=== PATIENT | female | born 1975 | race Caucasian/White ===

== ENCOUNTER 2019-09-17 17:45 | Inpatient (IN) | payer BC ==
[~2019-09-17] VITALS: Ht 162.6 cm; Wt 69.1 kg
[2019-09-17] MEDS ORDERED: ONDANSETRON 2MG/ML, 2ML IVPush ONE (18:30)
[2019-09-17] MEDS ORDERED: SODIUM CHLORIDE 0.9% 1,000ML IVBOLUS ONE ×2 (18:30→21:00)
[2019-09-17] MEDS ORDERED: SODIUM CHLORIDE FLUSH 10ML SYR IVF ONE (18:30)
[2019-09-17] MEDS ORDERED: ONDANSETRON 2MG/ML, 2ML ONE (18:44)
--- NOTE | 2019-09-17 19:10 | NUR ---
pt in [place] now
[2019-09-17] MEDS ORDERED: MORPHINE SULFATE 4 MG/ML, 1ML ONE (19:19)
[2019-09-17 19:26] LABS: MD YES; MEAN CORPUSCULAR HEMOGLOBIN 36.4 pg (27.0-34.8); MEAN CORPUSCULAR HGB CONC 35.1 g/dL (32.4-35.8); MEAN CORPUSCULAR VOLUME 103.7 fL (80-100); RED BLOOD COUNT 4.31 x10^6/uL (3.82-5.3); RED CELL DISTRIBUTION WIDTH 12.6 % (9.6-15.2)
[2019-09-17 19:29] LABS: <PLATELET ESTIMATE> ADEQUATE; <PLT MORPHOLOGY> NORMAL PLT MORPH; ANISOCYTOSIS 1+; BAND#(MANUAL) 0.12 x10^3/uL; BANDS%(MANUAL) 1 % (0-7); LYMPH#(MANUAL) 3.89 x10^3/uL (1-3.4); LYMPHS% (MANUAL) 33 % (22-44); MONOS#(MANUAL) 0.35 x10^3/uL (0.3-2.7); MONOS% (MANUAL) 3 % (2-9); SEG#(MANUAL) 7.43 x10^3/uL (1.8-6.8); SEGS% (MANUAL) 63 % (42-75)
[2019-09-17 19:30] LABS: MEAN PLATELET VOLUME 7.4 fL (7.4-10.4); PLATELET COUNT 178 x10^3/uL (130-400)
[2019-09-17] MEDS ORDERED: MORPHINE SULFATE 4 MG/ML, 1ML IVPush PRN ×2 (19:30→21:00)
[2019-09-17 19:51] LABS: ALBUMIN 3.7 g/dL (3.4-5.0); ANION GAP 16 mmol/L (5-15); CALCIUM 8.6 mg/dL (8.5-10.1); CHLORIDE 99 mmol/L (98-107)
[2019-09-17 19:54] LABS: ALKALINE PHOSPHATASE 141 U/L (45-117); BILIRUBIN,TOTAL 2.6 mg/dL (0.2-1.0); CREATININE 1.12 mg/dL (0.55-1.02); TOTAL PROTEIN 7.2 g/dL (6.4-8.2)
--- NOTE | 2019-09-17 19:58 | NUR ---
spoke with lab regading delay. having difficulty getting ast and alt. states they should be up in 5 minutes
[2019-09-17 20:08] LABS: ALANINE AMINOTRANSFERASE 203 U/L (12-78)
[2019-09-17] MEDS ORDERED: SODIUM CHLORIDE 0.9% 1,000 ML IV ONE (20:55)
[2019-09-17] MEDS ORDERED: LORazepam 2 MG/ML, 1ML IVPush PRN (21:00)
[2019-09-17] MEDS ORDERED: ONDANSETRON 2MG/ML, 2ML IVPush PRN (21:00)
[2019-09-17] MEDS ORDERED: SODIUM CHLORIDE FLUSH 10ML SYR IVF PRN (21:00)
[2019-09-17] MEDS ORDERED: hydrALAzine 20 MG/ML, 1ML IVPush PRN (21:30)
[2019-09-17] MEDS ORDERED: FOLIC ACID 5 MG/ML IM ONE (22:00)
[2019-09-17] MEDS ORDERED: LORazepam 2 MG/ML, 1ML IV PRN ×4 (22:00)
[2019-09-17 22:28] LABS: CHOL/HDL RATIO 10.2; CHOLESTEROL, TOTAL 398 mg/dL (140-239); HDL CHOL % 10 % (28-40); HDL CHOLESTEROL (DIRECT) 39 mg/dL (40-60); TRIGLYCERIDES 885 mg/dL (50-200)
[2019-09-17] MEDS: morphine SULFATE 10 MG/ML, 1ML IVPush PRN (22:43)
[2019-09-17 22:46] VITALS: BP 156/89
[2019-09-17] MEDS ORDERED: FOLIC ACID 1 MG TABLET PO ONE (23:00)
[2019-09-18 00:53] VITALS: BP 160/89
[2019-09-18] MEDS: ONDANSETRON 2MG/ML, 2ML IVPush PRN ×2 (01:09→08:00)
[2019-09-18] MEDS: morphine SULFATE 10 MG/ML, 1ML IVPush PRN ×6 (02:12→22:56)
[2019-09-18 06:04] LABS: ANION GAP 16 mmol/L (5-15); CHLORIDE 92 mmol/L (98-107)
[2019-09-18 06:13] LABS: CREATININE 0.88 mg/dL (0.55-1.02)
[2019-09-18 06:25] LABS: ALKALINE PHOSPHATASE 129 U/L (45-117); BILIRUBIN, DIRECT 3.4 mg/dL (0.1-0.2); BILIRUBIN,INDIRECT 2.3 mg/dL (0.0-2.0); BILIRUBIN,TOTAL 5.7 mg/dL (0.2-1.0); TOTAL PROTEIN 5.3 g/dL (6.4-8.2); TRIGLYCERIDES 942 mg/dL (50-200)
[2019-09-18 06:26] LABS: ALBUMIN 2.2 g/dL (3.4-5.0); CHOLESTEROL, TOTAL 419 mg/dL (140-239); HDL CHOL % 8 % (28-40); HDL CHOLESTEROL (DIRECT) 35 mg/dL (40-60)
[2019-09-18 06:27] LABS: CALCIUM 5.3 mg/dL (8.5-10.1)
[2019-09-18 06:46] LABS: ALANINE AMINOTRANSFERASE 207 U/L (12-78)
[2019-09-18 06:59] LABS: MEAN CORPUSCULAR HEMOGLOBIN 35.4 pg (27.0-34.8); MEAN CORPUSCULAR HGB CONC 33.9 g/dL (32.4-35.8); MEAN CORPUSCULAR VOLUME 104.6 fL (80-100); MEAN PLATELET VOLUME 7.7 fL (7.4-10.4); PLATELET COUNT 173 x10^3/uL (130-400); RED BLOOD COUNT 3.76 x10^6/uL (3.82-5.3); RED CELL DISTRIBUTION WIDTH 13.1 % (9.6-15.2)
[2019-09-18 07:11] LABS: MD YES
[2019-09-18 07:14] VITALS: BP 153/90
[2019-09-18 07:15] LABS: EOS#(MANUAL) 0.07 x10^3/uL (0.0-0.4); EOS% (MANUAL) 1 % (1-7); LYMPH#(MANUAL) 1.37 x10^3/uL (1-3.4); LYMPHS% (MANUAL) 19 % (22-44); MONOS#(MANUAL) 0.29 x10^3/uL (0.3-2.7); MONOS% (MANUAL) 4 % (2-9); SEG#(MANUAL) 5.47 x10^3/uL (1.8-6.8); SEGS% (MANUAL) 76 % (42-75)
[2019-09-18 07:16] LABS: <PLATELET ESTIMATE> ADEQUATE; <PLT MORPHOLOGY> NORMAL PLT MORPH
[2019-09-18] MEDS ORDERED: MULTIVITAMINS/MINERALS TABLET PO SCH (09:00)
[2019-09-18] MEDS ORDERED: CHLORDIAZEPOXIDE 25 MG CAPSULE PO PRN (11:00)
[2019-09-18] MEDS ORDERED: CALCIUM GLUCONATE 4.6 MEQ/10 ML IVPush ONE (11:00)
[2019-09-18] MEDS: POTASSIUM CHLORIDE 40 MEQ in SODIUM CHLORIDE 0.9% 1,000 ML IV SCH ×2 (11:16→20:14)
[2019-09-18] MEDS: METOCLOPRAMIDE 5 MG/ML, 2ML IVPush SCH ×3 (11:16→22:56)
[2019-09-18] MEDS: LORazepam 2 MG/ML, 1ML IV PRN ×2 (11:17→16:08)
[2019-09-18 12:37] VITALS: BP 133/82
[2019-09-18 19:09] VITALS: BP 113/76
[2019-09-19 00:57] VITALS: BP 110/73
[2019-09-19] MEDS: morphine SULFATE 10 MG/ML, 1ML IVPush PRN ×7 (02:01→23:08)
[2019-09-19] MEDS: POTASSIUM CHLORIDE 40 MEQ in SODIUM CHLORIDE 0.9% 1,000 ML IV SCH ×2 (03:46→12:17)
[2019-09-19] MEDS: METOCLOPRAMIDE 5 MG/ML, 2ML IVPush SCH ×4 (05:09→23:08)
[2019-09-19 06:11] LABS: MEAN CORPUSCULAR HEMOGLOBIN 35.2 pg (27.0-34.8); MEAN CORPUSCULAR HGB CONC 33.1 g/dL (32.4-35.8); MEAN CORPUSCULAR VOLUME 106.3 fL (80-100); MEAN PLATELET VOLUME 7.4 fL (7.4-10.4); PLATELET COUNT 128 x10^3/uL (130-400); RED BLOOD COUNT 3.77 x10^6/uL (3.82-5.3); RED CELL DISTRIBUTION WIDTH 13.4 % (9.6-15.2)
[2019-09-19 06:12] LABS: MD YES
[2019-09-19 06:14] LABS: BAND#(MANUAL) 1.22 x10^3/uL; BANDS%(MANUAL) 10 % (0-7); LYMPH#(MANUAL) 1.46 x10^3/uL (1-3.4); LYMPHS% (MANUAL) 12 % (22-44); MONOS#(MANUAL) 0.24 x10^3/uL (0.3-2.7); MONOS% (MANUAL) 2 % (2-9); SEG#(MANUAL) 9.27 x10^3/uL (1.8-6.8); SEGS% (MANUAL) 76 % (42-75)
[2019-09-19 06:15] LABS: <PLATELET ESTIMATE> ADEQUATE; <PLT MORPHOLOGY> NORMAL PLT MORPH
[2019-09-19 07:16] VITALS: BP 114/72
[2019-09-19] MEDS: THIAMINE 100 MG in DEXTROSE 5% 50 ML IVPB SCH (08:47)
[2019-09-19 08:52] LABS: ALANINE AMINOTRANSFERASE 93 U/L (12-78); ALBUMIN 2.4 g/dL (3.4-5.0); ANION GAP 12 mmol/L (5-15); CHLORIDE 113 mmol/L (98-107); CREATININE 1.03 mg/dL (0.55-1.02)
[2019-09-19 08:56] LABS: ALKALINE PHOSPHATASE 147 U/L (45-117); BILIRUBIN,TOTAL 3.1 mg/dL (0.2-1.0); TOTAL PROTEIN 6.2 g/dL (6.4-8.2)
[2019-09-19 09:16] LABS: TRIGLYCERIDES 948 mg/dL (50-200)
[2019-09-19 09:21] LABS: CALCIUM 5.8 mg/dL (8.5-10.1)
[2019-09-19 13:25] VITALS: BP 115/69
[2019-09-19] MEDS ORDERED: CALCIUM GLUCONATE 4.6 MEQ/10 ML IVPush ONE (14:00)
[2019-09-19] MEDS ORDERED: MAGNESIUM SULFATE PMX 2GM/50ML 50 ML IV ONE (14:00)
[2019-09-19] MEDS: SODIUM CHLORIDE 0.9% 1,000 ML IV SCH (14:32)
[2019-09-19] MEDS: POTASSIUM ACID PHOSPHATE 500 MG TABLET.SOL PO SCH ×2 (14:32→19:33)
[2019-09-19] MEDS: CHLORDIAZEPOXIDE 25 MG CAPSULE PO SCH ×2 (15:38→20:34)
[2019-09-19 19:18] VITALS: BP 123/79
[2019-09-19] MEDS: CALCIUM CARBONATE 500 MG TAB.CHEW PO SCH (20:34)
[2019-09-20 01:38] VITALS: BP 96/56
[2019-09-20] MEDS: morphine SULFATE 10 MG/ML, 1ML IVPush PRN ×7 (02:22→22:52)
[2019-09-20] MEDS: SODIUM CHLORIDE 0.9% 1,000 ML IV SCH ×2 (02:22→17:40)
[2019-09-20] MEDS: POTASSIUM ACID PHOSPHATE 500 MG TABLET.SOL PO SCH ×2 (02:22→08:41)
[2019-09-20 04:44] LABS: MEAN CORPUSCULAR HEMOGLOBIN 36.2 pg (27.0-34.8); MEAN CORPUSCULAR HGB CONC 34.8 g/dL (32.4-35.8); MEAN CORPUSCULAR VOLUME 104.1 fL (80-100); MEAN PLATELET VOLUME 7.7 fL (7.4-10.4); PLATELET COUNT 128 x10^3/uL (130-400); RED BLOOD COUNT 3.43 x10^6/uL (3.82-5.3); RED CELL DISTRIBUTION WIDTH 14.3 % (9.6-15.2)
[2019-09-20 04:46] LABS: ALBUMIN 1.8 g/dL (3.4-5.0); ANION GAP 6 mmol/L (5-15); CHLORIDE 105 mmol/L (98-107); CREATININE 0.66 mg/dL (0.55-1.02)
[2019-09-20 04:49] LABS: ALKALINE PHOSPHATASE 131 U/L (45-117); BILIRUBIN,TOTAL 2.7 mg/dL (0.2-1.0); TOTAL PROTEIN 5.6 g/dL (6.4-8.2)
[2019-09-20] MEDS: METOCLOPRAMIDE 5 MG/ML, 2ML IVPush SCH ×4 (05:11→22:52)
[2019-09-20 05:45] LABS: MD YES
[2019-09-20 05:47] LABS: BAND#(MANUAL) 1.77 x10^3/uL; BANDS%(MANUAL) 17 % (0-7); LYMPH#(MANUAL) 1.56 x10^3/uL (1-3.4); LYMPHS% (MANUAL) 15 % (22-44); MONOS#(MANUAL) 0.52 x10^3/uL (0.3-2.7); MONOS% (MANUAL) 5 % (2-9); SEG#(MANUAL) 6.55 x10^3/uL (1.8-6.8); SEGS% (MANUAL) 63 % (42-75)
[2019-09-20 05:48] LABS: <PLATELET ESTIMATE> ADEQUATE; <PLT MORPHOLOGY> NORMAL PLT MORPH
[2019-09-20 05:51] LABS: ALANINE AMINOTRANSFERASE 56 U/L (12-78)
[2019-09-20 06:05] LABS: CALCIUM 5.2 mg/dL (8.5-10.1)
[2019-09-20] MEDS ORDERED: CALCIUM GLUCONATE 4.6 MEQ/10 ML IVPush ONE (06:30)
[2019-09-20] MEDS ORDERED: CALCIUM GLUCONATE 4.6 MEQ in SODIUM CHLORIDE 0.9% 100 ML IV ONE ×2 (06:30→16:00)
[2019-09-20 07:15] VITALS: BP 109/71
[2019-09-20] MEDS: THIAMINE 100 MG in DEXTROSE 5% 50 ML IVPB SCH (08:41)
[2019-09-20] MEDS: CHLORDIAZEPOXIDE 25 MG CAPSULE PO SCH (08:41)
[2019-09-20] MEDS: CALCIUM CARBONATE 500 MG TAB.CHEW PO SCH ×2 (08:41→20:47)
[2019-09-20 13:48] VITALS: BP 103/67
[2019-09-20] MEDS: ENOXAPARIN 40 MG/0.4 ML SQ SCH (16:06)
[2019-09-20] MEDS: FENOFIBRATE 145 MG TABLET PO SCH (16:06)
[2019-09-20] MEDS ORDERED: CALCIUM GLUCONATE IV ONE (17:00)
[2019-09-20] MEDS ORDERED: SODIUM CHLORIDE 0.9% IV ONE (17:00)
[2019-09-20 19:01] VITALS: BP 124/64
[2019-09-20] MEDS: ATORVASTATIN 80 MG TABLET PO SCH (20:47)
[2019-09-21 00:42] VITALS: BP 115/73
[2019-09-21] MEDS: morphine SULFATE 10 MG/ML, 1ML IVPush PRN ×7 (02:00→23:02)
[2019-09-21 02:13] VITALS: BP 119/72
[2019-09-21 04:28] LABS: MEAN CORPUSCULAR HEMOGLOBIN 35.3 pg (27.0-34.8); MEAN CORPUSCULAR HGB CONC 34.4 g/dL (32.4-35.8); MEAN CORPUSCULAR VOLUME 102.7 fL (80-100); MEAN PLATELET VOLUME 7.4 fL (7.4-10.4); PLATELET COUNT 125 x10^3/uL (130-400)
[2019-09-21 04:36] LABS: ALANINE AMINOTRANSFERASE 34 U/L (12-78); ALBUMIN 1.5 g/dL (3.4-5.0); ANION GAP 7 mmol/L (5-15); CALCIUM 6.8 mg/dL (8.5-10.1); CHLORIDE 106 mmol/L (98-107)
[2019-09-21 04:39] LABS: ALKALINE PHOSPHATASE 106 U/L (45-117); BILIRUBIN,TOTAL 1.9 mg/dL (0.2-1.0); TOTAL PROTEIN 5.1 g/dL (6.4-8.2)
[2019-09-21 04:58] LABS: MD YES
[2019-09-21 05:00] LABS: BANDS%(MANUAL) 1 % (0-7); BASOS% (MANUAL) 2 % (0-1); EOS% (MANUAL) 1 % (1-7); LYMPH#(MANUAL) 1.41 x10^3/uL (1-3.4); LYMPHS% (MANUAL) 14 % (22-44); METAMYELOCYTES% (MANUAL) 2 % (0-1); MONOS% (MANUAL) 3 % (2-9); REACTIVE LYMPHS % (MANUAL) 2 % (0-0); SEG#(MANUAL) 7.58 x10^3/uL (1.8-6.8); SEGS% (MANUAL) 75 % (42-75)
[2019-09-21 05:01] LABS: <PLATELET ESTIMATE> ADEQUATE; <PLT MORPHOLOGY> NORMAL PLT MORPH
[2019-09-21] MEDS: METOCLOPRAMIDE 5 MG/ML, 2ML IVPush SCH ×4 (05:05→22:33)
[2019-09-21] MEDS: SODIUM CHLORIDE 0.9% 1,000 ML IV SCH (05:05)
[2019-09-21] MEDS ORDERED: CALCIUM GLUCONATE 0.46MEQ/1ML IVPush SCH (05:30)
[2019-09-21 06:55] VITALS: BP 88/53
[2019-09-21] MEDS: CALCIUM CARBONATE 500 MG TAB.CHEW PO SCH ×2 (09:20→19:53)
[2019-09-21] MEDS: FENOFIBRATE 145 MG TABLET PO SCH (09:20)
[2019-09-21] MEDS: THIAMINE 100 MG in DEXTROSE 5% 50 ML IVPB SCH (09:26)
[2019-09-21 09:41] VITALS: BP 106/68
[2019-09-21 12:54] VITALS: BP 106/65
[2019-09-21] MEDS ORDERED: POTASSIUM CHLORIDE 20 MEQ TAB.ER.PRT PO ONE (13:00)
[2019-09-21] MEDS: ENOXAPARIN 40 MG/0.4 ML SQ SCH (17:14)
[2019-09-21] MEDS: ATORVASTATIN 80 MG TABLET PO SCH (19:53)
[2019-09-21 19:55] VITALS: BP 122/77
[2019-09-22] MEDS: morphine SULFATE 10 MG/ML, 1ML IVPush PRN ×3 (02:10→08:26)
[2019-09-22] MEDS: SODIUM CHLORIDE 0.9% 1,000 ML IV SCH ×2 (02:11→16:40)
[2019-09-22 02:28] VITALS: BP 106/70
[2019-09-22] MEDS: METOCLOPRAMIDE 5 MG/ML, 2ML IVPush SCH ×4 (05:17→23:20)
[2019-09-22 05:45] LABS: ALANINE AMINOTRANSFERASE 30 U/L (12-78); ALBUMIN 1.6 g/dL (3.4-5.0); ANION GAP 6 mmol/L (5-15); CALCIUM 7.2 mg/dL (8.5-10.1); CHLORIDE 104 mmol/L (98-107)
[2019-09-22 05:47] LABS: MEAN CORPUSCULAR HEMOGLOBIN 35.2 pg (27.0-34.8); MEAN CORPUSCULAR HGB CONC 34.1 g/dL (32.4-35.8); MEAN CORPUSCULAR VOLUME 103.2 fL (80-100); MEAN PLATELET VOLUME 7.9 fL (7.4-10.4); PLATELET COUNT 143 x10^3/uL (130-400); RED BLOOD COUNT 2.86 x10^6/uL (3.82-5.3); RED CELL DISTRIBUTION WIDTH 14.1 % (9.6-15.2)
[2019-09-22 05:48] LABS: ALKALINE PHOSPHATASE 106 U/L (45-117); BILIRUBIN,TOTAL 1.1 mg/dL (0.2-1.0); TOTAL PROTEIN 5.3 g/dL (6.4-8.2); TRIGLYCERIDES 430 mg/dL (50-200)
[2019-09-22 06:13] LABS: MD YES
[2019-09-22 06:15] LABS: BANDS%(MANUAL) 9 % (0-7); LYMPHS% (MANUAL) 13 % (22-44); MONOS% (MANUAL) 7 % (2-9); SEGS% (MANUAL) 71 % (42-75)
[2019-09-22 06:18] LABS: <PLATELET ESTIMATE> ADEQUATE; <PLT MORPHOLOGY> NORMAL PLT MORPH
[2019-09-22 07:09] VITALS: BP 125/80
[2019-09-22] MEDS: FENOFIBRATE 145 MG TABLET PO SCH (08:26)
[2019-09-22] MEDS: CALCIUM CARBONATE 500 MG TAB.CHEW PO SCH ×2 (08:26→21:07)
[2019-09-22] MEDS: THIAMINE 100MG TABLET PO SCH ×2 (08:26→21:07)
[2019-09-22 12:48] VITALS: BP 105/64
[2019-09-22] MEDS: KETOROLAC 30 MG/1 ML IVPush PRN (16:40)
[2019-09-22] MEDS: ENOXAPARIN 40 MG/0.4 ML SQ SCH (16:41)
[2019-09-22 18:40] VITALS: BP 141/89
[2019-09-22] MEDS: PANCRELIPASE 24,000 CAPSULE.DR PO SCH (21:07)
[2019-09-22] MEDS: ATORVASTATIN 80 MG TABLET PO SCH (21:08)
[2019-09-23 01:33] VITALS: BP 116/73
[2019-09-23] MEDS: KETOROLAC 30 MG/1 ML IVPush PRN (04:52)
[2019-09-23 05:38] LABS: ALANINE AMINOTRANSFERASE 28 U/L (12-78); ALBUMIN 1.7 g/dL (3.4-5.0); ANION GAP 6 mmol/L (5-15); CALCIUM 7.9 mg/dL (8.5-10.1); CHLORIDE 104 mmol/L (98-107); CREATININE 0.75 mg/dL (0.55-1.02)
[2019-09-23 05:44] LABS: ALKALINE PHOSPHATASE 106 U/L (45-117); BILIRUBIN,TOTAL 1.1 mg/dL (0.2-1.0); TOTAL PROTEIN 5.5 g/dL (6.4-8.2); TRIGLYCERIDES 418 mg/dL (50-200)
[2019-09-23] MEDS: HYDROcodone/APAP 5/325 TABLET PO PRN ×2 (07:24→12:40)
[2019-09-23] MEDS: METOCLOPRAMIDE 5 MG/ML, 2ML IVPush SCH ×2 (07:25→11:00)
[2019-09-23] MEDS: SODIUM CHLORIDE 0.9% 1,000 ML IV SCH (07:30)
[2019-09-23 07:54] VITALS: BP 104/65
[2019-09-23] MEDS: PANCRELIPASE 24,000 CAPSULE.DR PO SCH ×2 (08:31→12:39)
[2019-09-23] MEDS: CALCIUM CARBONATE 500 MG TAB.CHEW PO SCH (08:31)
[2019-09-23] MEDS: FENOFIBRATE 145 MG TABLET PO SCH (08:31)
[2019-09-23] MEDS: THIAMINE 100MG TABLET PO SCH (08:31)
[2019-09-23] MEDS ORDERED: MULTIVITAMIN 1 TABLET PO SCH (09:00)
[2019-09-23] MEDS ORDERED: FOLIC ACID 1 MG TABLET PO SCH (09:00)
[2019-09-23] MEDS ORDERED: TRAM50TA2 PO (09:57)
[2019-09-23] MEDS ORDERED: FOLI-17 PO (09:57)
[2019-09-23] MEDS ORDERED: CALC200T24 PO (09:57)
[2019-09-23] MEDS ORDERED: ATOR-2 PO (09:57)
[2019-09-23] MEDS ORDERED: HYDR-3237 PO (09:57)
[2019-09-23] MEDS ORDERED: LIPA1CAP61 PO (09:57)
[2019-09-23] MEDS ORDERED: THIA100T67 PO (09:57)
[2019-09-23] MEDS ORDERED: FENO145T19 PO (09:57)
[2019-09-23] MEDS ORDERED: MULT1TAB60 PO (09:57)
== END 2019-09-23 13:04 | disposition home or self-care (01) | DRG 432 ==
LOC: ED 19:51 → EDIP 21:34 → 3N 22:07
PROVIDERS: ADMIT Internal Medicine; ATTEND Internal Medicine
DX: K70.10 Alcoholic hepatitis without ascites (principal); K85.20 Alcohol induced acute pancreatitis without necrosis or infection; N17.0 Acute kidney failure with tubular necrosis; E87.1 Hypo-osmolality and hyponatremia; E87.2 Acidosis; F10.239 Alcohol dependence with withdrawal, unspecified; K56.7 Ileus, unspecified; D69.6 Thrombocytopenia, unspecified; E78.1 Pure hyperglyceridemia; D75.89 Other specified diseases of blood and blood-forming organs; E83.39 Other disorders of phosphorus metabolism; E83.42 Hypomagnesemia; E83.51 Hypocalcemia; E88.09 Other disorders of plasma-protein metabolism, not elsewhere classified; F17.210 Nicotine dependence, cigarettes, uncomplicated; K52.9 Noninfective gastroenteritis and colitis, unspecified; Z90.49 Acquired absence of other specified parts of digestive tract
CPT/HCPCS: 36415; 74181; 76700; 80048; 80053; 80061; 80076; 80307; 82150; 82310; 82330; 83605; 83690; 83735; 84100; 84443; 84478; 84703; 85025; 85610; 96361; 96374; G0378; J0610; J1650; J1885; J2405; J3411; J3480; J2060; J2270; J2765; J3475; J7030; J7040